=== PATIENT | male | born 1955 | race Caucasian/White ===

== ENCOUNTER → 2018-07-18 | Outpatient (CLI) | payer OTHER ==
[~2018-07-18] MED LIST: ADULT MULTIVI200 MCG PO; ASPIRIN81 M2 PO; AUGMENTIN 875875 MG PO; DYAZIDE 37.5-21 EACH PO; DYRENIUM100 MG PO; ERYTHROMYCIN E3.5 G1 OP; FLEXERIL PO; GLUCOPHAGE1000 MG PO; GLUCOTROL5 MG PO; HYDROCODON-ACE1 EAC7 PO; NORVASC 5 MG TAB5 MG PO; PATADAY2.5 ML OP; TRIAMTERENE-HC1 EAC1 PO
[2018-07-18 07:52] LABS: POTASSIUM 3.5 mmol/L (3.5-5.1)
== END ==
LOC: M.LAB 05:03
PROVIDERS: Anesthesiology
DX: Z01.812 Encounter for preprocedural laboratory examination (principal); E11.9 Type 2 diabetes mellitus without complications

== ENCOUNTER → 2018-09-26 | Outpatient (CLI) | payer OTHER ==
[2018-09-26 08:43] LABS: POTASSIUM 3.9 mmol/L (3.5-5.1)
== END ==
LOC: M.LAB 08:09
PROVIDERS: Student in an Organized Health Care Education/Training Program
DX: Z01.812 Encounter for preprocedural laboratory examination (principal); E11.9 Type 2 diabetes mellitus without complications